=== PATIENT | female | born 1990 | race Caucasian/White ===

== ENCOUNTER 2021-09-28 13:06 | Emergency (ER) | payer BC, SELFPAY ==
[2021-09-28 13:13] VITALS: BP 147/93; PULSE 96; RESP 16; TEMP 36.4; O2SAT 99
--- NOTE | 2021-09-28 13:35 | ED.FEMALEGU ---
HPI - Female Genitourinary General Chief complaint: Urogenital-Female Stated complaint: POss UTI Time Seen by Provider: 09/28/21 13:30 Source: patient and RN notes reviewed Mode of arrival: ambulatory Limitations: no limitations History of Present Illness HPI Narrative: 31-year-old female presents concern for urinary tract infection. Reports she returned from her honeymoon and since started having dysuria, frequency, urgency, abdominal discomfort. Reports she has been having strong smelling cloudy urine. Reports has been taking Azo, cranberry juice and Aleve for pain relief. She is not concerned for STDs. She denies abnormal vaginal discharge, lesions, rash. MD elicited complaint: UTI Related Data Home Medications Medication Instructions Recorded Confirmed imipramine HCl 10 mg tablet 10 tablet QPM 09/28/21 09/28/21 labetalol 100 mg tablet 100 tablet PO DAILY 09/28/21 09/28/21 lansoprazole 15 mg capsule,delayed 15 mg PO DAILY 09/28/21 09/28/21 release Allergies Allergy/AdvReac Type Severity Reaction Status Date / Time No Known Allergies Allergy Verified 09/28/21 13:27 Review of Systems Review of Systems: CONSTITUTIONAL: Denies malaise, chills, sweats, or fever. CARDIOVASCULAR: Denies chest pain, palpitations, or edema. RESPIRATORY: Denies cough or dyspnea. GASTROINTESTINAL: Denies abdominal pain, nausea, vomiting, diarrhea. Reports abdominal discomfort GENITOURINARY: Reports dysuria, frequency, urgency, suprapubic discomfort. Denies flank pain or hematuria. SKIN: Denies rash or itching. MUSCULOSKELETAL: Denies back pain or myalgia. All systems reviewed & are unremarkable except as noted in HPI and below PMFSH Comments At time of signature, agree with nursing past medical, surgical, social and family history. There is no relevant family history pertinent to the presenting complaint Exam Narrative: GENERAL: Well-appearing, well-nourished, and in no acute distress. HEAD: Normocephalic. EYES: PERRLA, conjunctivae clear. NECK: Supple. No lymphadenopathy CHEST: Clear to auscultation. No respiratory distress. HEART: Regular rate and rhythm. ABDOMEN: Soft, nontender upon palpation, nondistended, normal active bowel sounds, no palpable or pulsatile masses, no guarding. No CVA tenderness SKIN: Warm, dry, no rash. NEURO: Alert and oriented x3. PSYCH: Normal mood and affect Course Course Emergency Course: Patient is aware of diagnosis, understands and agrees to treatment plan. Anticipatory guidance given. Patient agrees to follow-up as directed and is aware of reasons to seek care at the emergency department. Portions of this record may have been created with voice recognition software Level of Care: Express Care Visit Vital Signs Vital signs: Vital Signs Temperature 97.6 F 09/28/21 13:13 Pulse Rate 96 09/28/21 13:13 Respiratory Rate 16 09/28/21 13:13 Blood Pressure 147/93 H 09/28/21 13:13 Pulse Oximetry 99 09/28/21 13:13 Oxygen Delivery Room Air 09/28/21 13:13 Temperature 97.6 F 09/28/21 13:13 Pulse Rate 96 09/28/21 13:13 Respiratory Rate 16 09/28/21 13:13 Blood Pressure 147/93 H 09/28/21 13:13 Pulse Oximetry 99 09/28/21 13:13 Oxygen Delivery Room Air 09/28/21 13:13 Reviewed. MDM - Female Genitourinary MDM Narrative Medical decision making narrative: Exam findings and UA show no acute concerns or changes; patient is non-toxic appearing and is in no distress. Patient is appropriate for outpatient treatment and follow-up. Differential Diagnosis Differential diagnosis: Likely urinary tract infection and cystitis Lab Data Labs: Urine Glucose Negative Reference Range: Negative Urine Bilirubin Negative Reference Range: Negative Urine Ketone Negative Reference Rang
== END 2021-09-28 13:45 | disposition home or self-care (01) ==
PROVIDERS: Emergency Provider Nurse Practitioner
DX: R30.0 Dysuria (principal); R35.0 Frequency of micturition; R39.15 Urgency of urination; I10 Essential (primary) hypertension
CPT/HCPCS: 81003; 87077; 87086; 87186; 99213; G0463